=== PATIENT | female | born 1995 | race Caucasian/White ===

== ENCOUNTER 2022-11-11 14:46 | Emergency (ER) | payer OTHER, MEDICAID ==
[~2022-11-11] VITALS: Ht 170.2 cm; Wt 80.3 kg
[2022-11-11 14:55] VITALS: BP_SYST 134
[2022-11-11] MEDS ORDERED: CORTEARS LEFT EAR (15:44)
[2022-11-11] MEDS ORDERED: IBUP-1969 PO (15:44)
[2022-11-11 15:52] VITALS: BP_SYST 134
== END 2022-11-11 15:51 | disposition home or self-care (01) ==
LOC: SED 14:46
DX: H60.92 Unspecified otitis externa, left ear (principal); H92.02 Otalgia, left ear; Z79.899 Other long term (current) drug therapy
CPT/HCPCS: 99283